=== PATIENT | female | born 1975 | race African-American/Black ===

== ENCOUNTER 2016-07-14 12:54 | Emergency (ER) | payer OTHER ==
[~2016-07-14] VITALS: Ht 175.3 cm; Wt 90.7 kg
[2016-07-14 13:39] VITALS: BP 130/90
== END 2016-07-14 17:22 | disposition home or self-care (01) ==
LOC: EDUNIT# 12:54 → ER 12:54 → EDBD 12:54 → ER 17:22
DX: S40.012A Contusion of left shoulder, initial encounter (principal); E66.9 Obesity, unspecified; Z68.29 Body mass index [BMI] 29.0-29.9, adult; V43.52XA Car driver injured in collision with other type car in traffic accident, initial encounter; Y92.89 Other specified places as the place of occurrence of the external cause; Y93.89 Activity, other specified; Y99.8 Other external cause status
CPT/HCPCS: 73030